=== PATIENT | male | born 2005 | race Caucasian/White ===

== ENCOUNTER 2024-01-08 11:39 | Emergency (ER) | payer OTHER ==
[~2024-01-08] VITALS: Ht 172.7 cm; Wt 68.0 kg
[2024-01-08 12:16] VITALS: BP 138/75; O2SAT 98
[2024-01-08] MEDS ORDERED: TUSSL MT (15:19)
[2024-01-08] MEDS ORDERED: CETI1TAB MT (15:19)
[2024-01-08 15:37] VITALS: PULSE 75; RESP 16; TEMP 36.61404; O2SAT 98
== END 2024-01-08 16:33 | disposition home or self-care (01) ==
LOC: ER 11:39
DX: U07.1 COVID-19 (principal); Z88.6 Allergy status to analgesic agent
CPT/HCPCS: 87426; 87804; 99283